=== PATIENT | male | born 1995 | race Hispanic/Latino ===

== ENCOUNTER 2017-01-01 19:21 | Emergency (ER) | payer BC ==
[2017-01-01 19:28] VITALS: BP 116/88; PULSE 52; RESP 16; TEMP 98.1; O2SAT 100
--- NOTE | 2017-01-01 21:04 | ED PDOC ---
HPI: Trauma/Fall - HPI Time Seen by Provider: 01/01/17 19:44 Chief Complaint (Nursing): Trauma Chief Complaint (Provider): Trauma History Per: Patient History/Exam Limitations: no limitations Onset/Duration Of Symptoms: Hrs (prior to arrival) Location Of Injury: Right: Face (laceration to right eyebrow), Anterior: Face Severity: Mild Associated Symptoms: denies: LOC Additional Complaint(s): Augustus Rene is a 21 year old male, with no past medical history, who presents to the emergency department due to a sustained injury to the face associated with swelling, nosebleed and laceration to right eyebrow onset prior to arrival. Patient reports he was kicked in the face in a soccer match, since then the nose bleed has stopped. He denies nausea, vomit, or loss of consciousness. No further medical complaints. PMD: None provided. Past Medical History Reviewed: Historical Data, Nursing Documentation, Vital Signs Vital Signs: Last Vital Signs Temp 98.1 F 01/01/17 19:24 Pulse 52 L 01/01/17 19:24 Resp 16 01/01/17 19:24 BP 116/88 01/01/17 19:24 Pulse Ox 100 01/01/17 19:24 - Medical History PMH: No Chronic Diseases - Surgical History Surgical History: Appendectomy Other surgeries: left ACL repair - Family History Family History: States: Unknown Family Hx - Social History Current smoker - smoking cessation education provided: No Alcohol: None Drugs: Denies - Home Medications Home Medications: Ambulatory Orders Medication Instructions Recorded Ibuprofen [Motrin Tab] 600 mg PO Q6 #30 tab 01/01/17 - Allergies Allergies/Adverse Reactions: Allergies Allergy/AdvReac Type Severity Reaction Status Date / Time No Known Allergies Allergy Verified 01/01/17 19:24 Review of Systems ROS Statement: Except As Marked, All Systems Reviewed And Found Negative Eyes: Positive for: Other (swelling and laceration to right eyebrow) Gastrointestinal: Negative for: Nausea, Vomiting Physical Exam - Reviewed Nursing Documentation Reviewed: Yes Vital Signs Reviewed: Yes - Physical Exam Appears: Positive for: Well, Non-toxic, No Acute Distress Head Exam: Positive for: NORMAL INSPECTION, NORMOCEPHALIC. Negative for: ATRAUMATIC (abrasion on forehead) Skin: Positive for: Normal Color, Warm, Dry Eye Exam: Positive for: Other (Ecchymosis to the right eyelid. 3cm V shaped laceration to right eyebrow) ENT: Positive for: Other (ecchymosis to nose, no septal hematoma, no active bleeding) Neck: Positive for: Normal, Painless ROM, Supple Cardiovascular/Chest: Positive for: Regular Rate, Rhythm. Negative for: Murmur Respiratory: Positive for: Normal Breath Sounds. Negative for: Respiratory Distress Gastrointestinal/Abdominal: Positive for: Normal Exam, Bowel Sounds, Soft Back: Positive for: Normal Inspection Extremity: Positive for: Normal ROM. Negative for: Pedal Edema, Deformity Neurologic/Psych: Positive for: Alert, Oriented (x3). Negative for: Motor/ Sensory Deficits (intact distally) - ECG O2 Sat by Pulse Oximetry: 100 (RA) Pulse Ox Interpretation: Normal Medical Decision Making Medical Decision Making: Initial Impression: Head injury Initial Plan: --Nasal Bone [RAD] -laceration repaired with dermabond, irrigated with 50ccs of normal saline. Scribe Attestation: Documented by Yevgeniy Meraz, acting as a scribe for Drake Asencio MD Provider Scribe Attestation: All medical record entries made by the Scribe were at my direction and personally dictated by me. I have reviewed the chart and agree that the record accurately reflects my personal performance of the history, physical exam, medical decision making, and the department course for this patient. I have also personally directed, reviewed, and agree with the discharge instructions and disposition. Procedures - Laceration/Wound Repair Right eyebrow Wound Length (cm): 3 (V-shaped) Irrigated w/ Saline (ccs): 50 Wound Repaired With: Skin adhesive (dermabond) Wound Complexity: Simple Disposition - Clinical Impression Clinical Impression: Head injury - Disposition Referrals: [facility] [Outside] Disposition Time: 21:00 Condition: STABLE Prescriptions: Ibuprofen [Motrin Tab] 600 mg PO Q6 #30 tab Instructions: Laceration (ED), Nosebleed (ED), Black Eye (ED), Head Injury (ED) , Skin Adhesive Care (ED) Forms: [employer] ([place]), [facility] ED School/Work Excuse
--- NOTE | 2017-01-02 13:43 | RAD ---
PROCEDURE: Radiographs of Nasal Bones HISTORY: nasal injury COMPARISON: None available. TECHNIQUE: There is a subtle lucency incompletely traversing the proximal nasal bone seen in the left lateral projection that could represent artifact. Incomplete nasal bone fracture less likely though not completely excluded. No other suspicious lucencies are identified. FINDINGS: No fracture of nasal bones visualized. No destructive lesion. IMPRESSION: Probable artifact traversing the proximal nasal bones. Incomplete left-sided nasal bone fracture less likely though not completely excluded. Follow-up CT scan could be performed for further evaluation if necessary.
== END 2017-01-01 22:37 | disposition home or self-care (01) ==
LOC: H.ER 19:21
DX: S01.111A Laceration without foreign body of right eyelid and periocular area, initial encounter (principal); W21.9XXA Striking against or struck by unspecified sports equipment, initial encounter; Y93.66 Activity, soccer; Y92.9 Unspecified place or not applicable